=== PATIENT | male | born 1995 | race Asian ===

== ENCOUNTER 2018-06-28 07:35 | Emergency (ER) | payer OTHER ==
[2018-06-28] MEDS ORDERED: PREDNISONE 20 MG TABLET PO ONE (08:03)
--- NOTE | 2018-06-28 08:08 | ER Document Report ---
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 Patient complains of rash to extremities that is pruritic and is concerned about poison lauren. Patient denies any new foods medications or detergents. Associated Symptoms: Other - Skin rash Exacerbated by: Denies Relieved by: Denies Similar symptoms previously: No Recently seen / treated by doctor: No - ROS ROS below otherwise negative: Yes Systems Reviewed and Negative: Yes All other systems reviewed and negative - CARDIOVASCULAR Cardiovascular: DENIES: Chest pain - RESPIRATORY Respiratory: DENIES: Trouble Breathing, Coughing - GASTROINTESTINAL Gastrointestinal: DENIES: Nausea - DERM Skin Problems: Rash Past Medical History - General Information source: Patient - Social History Smoking Status: Never Smoker Frequency of alcohol use: None Drug Abuse: None Occupation: Active duty Family History: Reviewed & Not Pertinent - Medical History Medical History: Negative Surgical Hx: Negative - Immunizations Immunizations up to date: Yes Vertical Provider Document - CONSTITUTIONAL Agree With Documented VS: Yes Exam Limitations: No Limitations General Appearance: WD/WN, No Apparent Distress - INFECTION CONTROL TRAVEL OUTSIDE OF THE [place] IN LAST 30 DAYS: No - HEENT HEENT: Atraumatic, Normal ENT Exam, Normocephalic Notes: No angioedema, no potential airway compromise - NECK Neck: Normal Inspection, Supple - RESPIRATORY Respiratory: Breath Sounds Normal, No Respiratory Distress - CARDIOVASCULAR Cardiovascular: Regular Rate, Regular Rhythm, No Murmur - BACK Back: Normal Inspection - MUSCULOSKELETAL/EXTREMETIES Musculoskeletal/Extremeties: MAEW - NEURO Level of Consciousness: Awake, Alert, Appropriate Motor/Sensory: No Motor Deficit - DERM Integumentary: Warm, Dry, Rash - Erythematous rash to extremities, some areas with linear pattern consistent with reported history of poison lauren exposure Discharge - Discharge Clinical Impression: Dermatitis Condition: Stable Disposition: HOME, SELF-CARE Instructions: Corticosteroid Medication ([facility]), Use of Diphenhydramine, Poison Lauren ([facility]), Steroid Medication Additional Instructions: Return immediately for any new or worsening symptoms Followup with your primary care provider, call tomorrow to make a followup appointment Take Benadryl [id number] to help with itching Use technu or Zanfel bihg-htn-vlahihs to wash skin Prescriptions: Prednisone [Deltasone 5 mg Tablet] 5 mg PO ASDIR PRN #65 tablet PRN Reason: Prednisone 5 mg PO ASDIR PRN #35 tablet PRN Reason: Referrals: [facility] [Provider Group] - Follow up as needed
[2018-06-28 08:19] VITALS: BP 121/77
== END 2018-06-28 08:47 | disposition home or self-care (01) ==
LOC: ER 07:35
DX: L30.9 Dermatitis, unspecified (principal); L29.9 Pruritus, unspecified
CPT/HCPCS: 99282; J7512